=== PATIENT | male | born 1950 | race Caucasian/White ===

== ENCOUNTER 2020-05-23 11:38 | Emergency (ER) | payer MEDICARE, OTHER ==
[2020-05-23] MEDS ORDERED: Lidocaine 1% PF 5 ML VIAL ONE (11:47)
[2020-05-23] MEDS ORDERED: Sulfameth/Trimethoprim DS 800-160mg TAB ONE (12:01)
== END 2020-05-23 12:06 | disposition home or self-care (01) ==
LOC: BURERS 11:38
DX: L02.214 Cutaneous abscess of groin (principal)
CPT/HCPCS: 10060